=== PATIENT | male | born 1945 | race Two or more races ===

== ENCOUNTER → 2016-10-16 | Outpatient (CLI) | payer OTHER ==
--- NOTE | 2016-10-16 15:11 | RADRPT ---
PROCEDURE: XR pelvis/right hip. CLINICAL INDICATION: Hip pain TECHNIQUE: AP pelvis/AP and lateral right hip views performed COMPARISON: No prior studies are available for comparison. FINDINGS: There is mild to moderate bilateral hip osteoarthrosis. This is associated with joint space narrowin g, subchondral sclerosis and osteophytosis. There is normal mineralization. No fractures or osseou s lesions are identified. The soft tissues are unremarkable. IMPRESSION: Mild to moderate bilateral hip osteoarthrosis. RPTAT: [facility] .Lamberto Coello MD, MD Date Time Electronically viewed and signed by .Lamberto Coello MD, on 10/16/2016 15:10 .B/
--- NOTE | 2016-10-16 15:12 | RADRPT ---
PROCEDURE: XR right knee. CLINICAL INDICATION: Knee pain TECHNIQUE: AP weightbearing, PA weightbearing, lateral weightbearing and sunrise views are availab le for review. COMPARISON: None available FINDINGS: There is calcific enthesopathy involving the anterior superior aspect of the patella. The osseous structures are normal in mineralization, architecture and alignment. No fractures are i dentified. No osseous lesions are identified. The joints are unremarkable. The soft tissues are u nremarkable. IMPRESSION: Calcific enthesopathy involving the anterior superior aspect of the patella. Otherwise unremarkable examination RPTAT: HG[facility] .Lamberto Coello MD, MD Date Time Electronically viewed and signed by .Lamberto Coello MD, on 10/16/2016 15:11 .B/
--- NOTE | 2016-10-16 17:58 | RADRPT ---
PROCEDURE: XR Right Femur. CLINICAL INDICATION: Right leg pain. TECHNIQUE: AP and lateral views of the right femur were performed. COMPARISON: None. FINDINGS: There is no fracture or dislocation. The soft tissues are normal. There are mild degenerative changes of the hip and knee. There is no lytic or blastic lesion. There is no radiopaque foreign body. IMPRESSION: 1. Mild degenerative changes of the hip and knee. 2. Otherwise normal images of the right femur. RPTAT: QQ .Edd Luther MD, MD Date Time Electronically viewed and signed by .Edd Luther MD, on 10/16/2016 17:58 .R/
== END | disposition home or self-care (01) ==
LOC: HKI 14:35
PROVIDERS: ATTEND Orthopaedic Surgery
DX: M16.0 Bilateral primary osteoarthritis of hip (principal); M25.551 Pain in right hip; D49.2 Neoplasm of unspecified behavior of bone, soft tissue, and skin; F17.200 Nicotine dependence, unspecified, uncomplicated
CPT/HCPCS: 73502; 73552; 73564; G0463